=== PATIENT | male | born 1980 | race Caucasian/White ===

== ENCOUNTER 2019-06-21 05:14 | Observation (INO) ==
[2019-06-21] MEDS ORDERED: Ondansetron 4 MG/2 ML VIAL IVP ONE (05:35)
[2019-06-21] MEDS ORDERED: *HR* FentaNYL (PF) 100 MCG/2 ML VIAL IVP ONE (05:35)
--- NOTE | 2019-06-21 05:38 | Emergency Department Note ---
Disposition Clinical Impression: Cholecystitis Disposition: Still a Patient Condition: Fair Time of Disposition: 21:40 General Adult HPI - General Stated complaint: Abd. Pain Time Seen by Provider: 06/21/19 05:19 - Related Data Home Medications Medication Instructions Recorded Confirmed No Known Home Drugs 06/21/19 06/21/19 Allergies Allergy/AdvReac Type Severity Reaction Status Date / Time No Known Allergies Allergy Verified 04/20/19 15:45 Past Medical History - Past Medical History Medical history: Reports: non-contributory - Social History Smoking Status: Current every day smoker Smokeless Tobacco Status: No Alcohol use: Reports: occasionally Drug use: Reports: IV Drug Use Course Vital Signs Temperature 98.1 F 06/21/19 05:36 Pulse Rate 71 06/21/19 05:36 Respiratory Rate 16 06/21/19 05:36 Blood Pressure 159/106 06/21/19 05:36 O2 Sat by Pulse Oximetry 100 06/21/19 05:36 Temperature 98.5 F 06/21/19 20:21 Pulse Rate 79 06/21/19 20:21 Respiratory Rate 16 06/21/19 20:21 Blood Pressure 131/74 06/21/19 20:21 O2 Sat by Pulse Oximetry 96 06/21/19 20:21 Oxygen Delivery Oxygen Delivery Room Air Medical Decision Making - Lab Data Result diagrams: 06/21/19 05:55 06/21/19 05:55 Lab Results 06/21/19 06/21/19 06/21/19 Range/Units 05:55 05:55 05:55 WBC 12.4 H (4.3-11.1) K/mcL RBC 5.19 (4.19-5.50) M/mcL Hgb 15.1 (12.9-16.9) g/dL Hct 45.0 (37.5-50.1) % MCV 86.7 (83.0-100.0) fL MCH 29.1 (28.0-33.3) pg MCHC 33.6 (31.6-35.5) g/dL RDW 13.1 (11.5-14.5) % Plt Count 242 (140-400) K/mcL MPV 9.4 (9.4-12.4) fL Immature Gran % 0.3 (0-4) % Seg Neutrophils % 70.4 % Lymphocytes % 15.5 % Monocytes % 10.5 % Eosinophils % 2.7 % Basophils % 0.6 % Neutrophils # 8.7 (1.6-8.9) K/mcL Lymphocytes # 1.9 (0.6-4.6) K/mcL Monocytes # 1.3 (0.0-1.3) K/mcL Eosinophils # 0.3 (0.0-0.6) K/mcL Basophils # 0.1 (0.0-0.2) K/mcL PT 11.5 (9.4-12.1) Seconds INR 1.0 Sodium 142 (136-145) mEq/L Potassium 3.5 (3.5-5.1) mEq/L Chloride 101 (98-107) mEq/L Carbon Dioxide 29 (23-29) mEq/L BUN 9 (6-20) mg/dL Creatinine 1.07 (0.70-1.30) mg/dL Est GFR ( Amer) > 60 (> 60) Est GFR (Non-Af Amer) > 60 (> 60) BUN/Creatinine Ratio 8 (6-26) Glucose 115 H (70-105) mg/dL Calculated Osmolality 294 (280-300) Calcium 9.6 (8.6-10.3) mg/dL Total Bilirubin 0.4 (0.3-1.0) mg/dL AST 22 (13-39) Units/L ALT 42 (7-52) Units/L Alkaline Phosphatase 94 (34-104) Units/L Serum Total Protein 7.5 (6.4-8.9) g/dL Albumin 4.0 (3.5-5.7) g/dL Globulin 3.5 (2.4-3.5) g/dL Albumin/Globulin Ratio 1.1 (1.1-2.2) Lipase 23 (11-82) Units/L Urine Color (Yellow) Urine Clarity (Clear) Urine pH (5.0-8.0) pH Units Ur Specific [place] (1.010-1.025) Urine Protein (Neg-Trace) mg/dL Urine Glucose (UA) (Normal) mg/dL Urine Ketones (Negative) mg/dL Urine Blood (Negative) Urine Nitrite (Negative) Urine Bilirubin (Negative) Urine Urobilinogen (Normal) mg/dL Ur Leukocyte Esterase (Negative) Urine Microscopic RBC (0-3) per hpf Urine Microscopic WBC (0-3) per hpf Ur Squamous Epith Cells (None-Few) per lpf Urine Bacteria (None-Few) per hpf Hyaline Casts (None-Few) per lpf 06/21/19 Range/Units 07:55 WBC (4.3-11.1) K/mcL RBC (4.19-5.50) M/mcL Hgb (12.9-16.9) g/dL Hct (37.5-50.1) % MCV (83.0-100.0) fL MCH (28.0-33.3) pg MCHC (31.6-35.5) g/dL RDW (11.5-14.5) % Plt Count (140-400) K/mcL MPV (9.4-12.4) fL Immature Gran % (0-4) % Seg Neutrophils % % Lymphocytes % % Monocytes % % Eosinophils % % Basophils % % Neutrophils # (1.6-8.9) K/mcL Lymphocytes # (0.6-4.6) K/mcL Monocytes # (0.0-1.3) K/mcL Eosinophils # (0.0-0.6) K/mcL Basophils # (0.0-0.2) K/mcL PT (9.4-12.1) Seconds INR Sodium (136-145) mEq/L Potassium (3.5-5.1) mEq/L Chloride (98-107) mEq/L Carbon Dioxide (23-29) mEq/L BUN (6-20) mg/dL Creatinine (0.70-1.30) mg/dL Est GFR ( Amer) (> 60) Est GFR (Non-Af Amer) (> 60) BUN/Creatinine Ratio (6-26) Glucose (70-105) mg/dL Calculated Osmolality (280-300) Calcium (8.6-10.3) mg/dL Total Bilirubin (0.3-1.0) mg/dL AST (13-39) Units/L ALT (7-52) Units/L Alkaline Phosphatase (34-104) Units/L Serum Total Protein (6.4-8.9) g/dL Albumin (3.5-5.7) g/dL Globulin (2.4-3.5) g/dL Albumin/Globulin Ratio (1.1-2.2) Lipase (11-82) Units/L Urine Color Yellow (Yellow) Urine Clarity Cloudy A (Clear) Urine pH 7.5 (5.0-8.0) pH Units Ur Specific [place] 1.022 (1.010-1.025) Urine Protein Negative (Neg-Trace) mg/dL Urine Glucose (UA) Normal (Normal) mg/dL Urine Ketones Negative (Negative) mg/dL Urine Blood Negative (Negative) Urine Nitrite Negative (Negative) Urine Bilirubin Negative (Negative) Urine Urobilinogen Normal (Normal) mg/dL Ur Leukocyte Esterase Negative (Negative) Urine Microscopic RBC 0-3 (0-3) per hpf Urine Microscopic WBC 0-3 (0-3) per hpf Ur Squamous Epith Cells None Seen (None-Few) per lpf Urine Bacteria None Seen (None-Few) per hpf Hyaline Casts None Seen (None-Few) per lpf Attestation Statement - Attestation Attestation: I reviewed the residents documentation and agree with the residents assessment and plan of care. I have personally had face to face time with the patient. (Brief History, Brief Exam, and MDM) I personally supervised and was present for the burks/critical portions of the following procedures completed by the resident: (add procedures performed here). [id number] time provided Patient presents with epigastric pain starting yesterday. He appears mildly uncomfortable on exam. He states he has never had pain like this in the past I attest to supervising the resident physician's interpretation the ECG I attest to supervising the resident physician's Limited right upper quadrant ultrasound 06:33: Care endorsed to Dr. Baptiste 07:00 pending GB US and re-evaluation
--- NOTE | 2019-06-21 05:57 | Emergency Department Note ---
Disposition Clinical Impression: Cholecystitis Disposition: Still a Patient Condition: Fair Instructions: Abdominal Pain (ED) Referrals: NONE,PCP [Primary Care Provider] - Time of Disposition: 06:58 General Adult HPI - General Stated complaint: Abd. Pain Time Seen by Provider: 06/21/19 05:19 Source: patient Mode of arrival: ambulatory Limitations: no limitations Nursing Notes Reviewed: Yes Vital Signs Reviewed: Yes - History of Present Illness HPI Narrative: Patient is a 38-year-old male, previously healthy who is presenting with right upper quadrant abdominal pain. States that the pain started yesterday has been progressively getting worse. Pain is constant, does not radiate anywhere. Pain worsens when he eats. Reports decreased appetite and fluid intake. Cannot find a comfortable position. Nothing appears to decrease the pain. Describes the pain as sharp and stabbing. Patient has a gallbladder, has had appendix removed in the past. Endorses nausea, vomiting. Denies fevers, chills. Denies any dysuria or constipation/diarrhea. Pain Scale: 10 - Related Data Allergies Allergy/AdvReac Type Severity Reaction Status Date / Time No Known Allergies Allergy Verified 04/20/19 15:45 All systems ED: reviewed and negative except as stated. Review of Systems: As Per HPI Constitutional: Denies: fever, chills, weakness Eyes: Denies: eye pain, eye discharge, vision change ENT ED: Denies: ear pain, throat pain, dental pain Cardiovascular: Denies: chest pain, palpitations, dyspnea on exertion Respiratory: Denies: cough, dyspnea, wheezes Gastrointestinal: Reports: abdominal pain, nausea, vomiting. Denies: diarrhea, constipation Genitourinary: Denies: urgency, dysuria, frequency Musculoskeletal: Denies: back pain, neck pain, joint swelling Integumentary: Denies: rash, abrasion, lesions Neurological: Denies: headache, weakness, numbness Psychiatric: Denies: anxiety, depression, suicidal thoughts Endocrine: Denies: fatigue, heat or cold intolerance, polydipsia Past Medical History - Past Medical History Attestation: Yes The following information was validated with the patient. Source: patient Medical history: Reports: non-contributory - Social History Smoking Status: Current every day smoker Smokeless Tobacco Status: No Alcohol use: Reports: occasionally Drug use: Reports: IV Drug Use Physical Exam GEN: Uncomfortable, moderate distress, conversant. He is diaphoretic. HEENT: NC, AT. MMM. EOMI, clear conjunctiva, oropharynx clear. NECK: Supple without lymphadenopathy. No stiffness or restricted ROM. HEART: Normal rate and regular rhythm, normal S1/S1, no m/r/g LUNGS: CTAB, moving air well. No crackles or wheezes are heard. ABDOMEN: Tender to palpation in the right upper quadrant, guarding, rigidity, no rebound with good bowel sounds heard. Positive Ramos sign BACK: No CVAT, no obvious deformity. EXTREMITIES: Without cyanosis, clubbing or edema. NEUROLOGICAL: Grossly nonfocal. Alert and oriented, moving all 4 extremities. CN not formally tested but appear grossly intact. Observed to ambulate with normal gait. Skin: Warm and dry without any rash. - General Limitations: no limitations General appearance: alert Course Course Narrative: Patient was seen and examined. Vital signs remarkable for systolic blood pressure 150s. Exam remarkable for extremely tender right upper quadrant. Bedside ultrasound of the gallbladder was performed showing no gallbladder wall thickening or pericholecystic fluid, possible sludge. Labs and CT scan of the abdomen and pelvis obtained. Fentanyl and Zofran given for symptom control. - Reevaluation(s) Reevaluation #1: Surgery was contacted and made aware of the patient. Communicated with Dr. Kumar, will see in the ED and evaluate for surgical intervention. Time: 06:56 Vital Signs Temperature 98.1 F 06/21/19 05:36 Pulse Rate 71 06/21/19 05:36 Respiratory Rate 16 06/21/19 05:36 Blood Pressure 159/106 06/21/19 05:36 O2 Sat by Pulse Oximetry 100 06/21/19 05:36 Temperature 98.1 F 06/21/19 05:36 Pulse Rate 71 06/21/19 05:36 Respiratory Rate 16 06/21/19 05:36 Blood Pressure 159/106 06/21/19 05:36 O2 Sat by Pulse Oximetry 100 06/21/19 05:36 Oxygen Delivery Oxygen Delivery Room Air Medical Decision Making - MDM Narrative Medical decision making narrative: Patient is a 38-year-old male with no previous medical history who is presenting with right upper quadrant pain. CT scan indicated likely cholecystitis with a partially calcified gallstone in the gallbladder neck with some pericholecystic fluid. Patient has a positive Ramos sign with guarding and rigidity. Differential includes cholecystitis, cholelithiasis. Patient has a white count of 12 with normal liver function tests. Patient's pain treated with fentanyl and Dilaudid. We will further evaluate with a formal gallbladder ultrasound. Surgery was consulted and will see the patient in the emergency department to evaluate for acute surgical intervention. At this time patient was signed out to oncoming team for further care. Patient was started on Rocephin, PT INR obtained. Patient is hemodynamically stable at sign out. - Medical Records Medical records reviewed: Yes I reviewed the patient's medical records. - Lab Data Lab results reviewed: Yes I reviewed the patient's lab results. Result diagrams: 06/21/19 05:55 06/21/19 05:55 Lab Results 06/21/19 06/21/19 Range/Units 05:55 05:55 WBC 12.4 H (4.3-11.1) K/mcL RBC 5.19 (4.19-5.50) M/mcL Hgb 15.1 (12.9-16.9) g/dL Hct 45.0 (37.5-50.1) % MCV 86.7 (83.0-100.0) fL MCH 29.1 (28.0-33.3) pg MCHC 33.6 (31.6-35.5) g/dL RDW 13.1 (11.5-14.5) % Plt Count 242 (140-400) K/mcL MPV 9.4 (9.4-12.4) fL Immature Gran % 0.3 (0-4) % Seg Neutrophils % 70.4 % Lymphocytes % 15.5 % Monocytes % 10.5 % Eosinophils % 2.7 % Basophils % 0.6 % Neutrophils # 8.7 (1.6-8.9) K/mcL Lymphocytes # 1.9 (0.6-4.6) K/mcL Monocytes # 1.3 (0.0-1.3) K/mcL Eosinophils # 0.3 (0.0-0.6) K/mcL Basophils # 0.1 (0.0-0.2) K/mcL Sodium 142 (136-145) mEq/L Potassium 3.5 (3.5-5.1) mEq/L Chloride 101 (98-107) mEq/L Carbon Dioxide 29 (23-29) mEq/L BUN 9 (6-20) mg/dL Creatinine 1.07 (0.70-1.30) mg/dL Est GFR ( Amer) > 60 (> 60) Est GFR (Non-Af Amer) > 60 (> 60) BUN/Creatinine Ratio 8 (6-26) Glucose 115 H (70-105) mg/dL Calculated Osmolality 294 (280-300) Calcium 9.6 (8.6-10.3) mg/dL Total Bilirubin 0.4 (0.3-1.0) mg/dL AST 22 (13-39) Units/L ALT 42 (7-52) Units/L Alkaline Phosphatase 94 (34-104) Units/L Serum Total Protein 7.5 (6.4-8.9) g/dL Albumin 4.0 (3.5-5.7) g/dL Globulin 3.5 (2.4-3.5) g/dL Albumin/Globulin Ratio 1.1 (1.1-2.2) Lipase 23 (11-82) Units/L - Radiology Data Radiology results reviewed: Yes I reviewed the patient's radiology results. Abdomen/Pelvis CT 06/21/19 05:36 IMPRESSION: Partially calcified gallstone in the gallbladder neck with gallbladder distension, mild hyperemia, and question trace pericholecystic fluid suspicious of acute cholecystitis. D/ / Cyril Goyal / Cyril Goyal Interpreting Provider: Cyril Goyal - EKG Data EKG #1 EKG attestation: Yes I reviewed and interpreted this EKG. EKG results narrative: EKG was obtained at 6:02 AM. My interpretation of the EKG shows normal sinus rhythm, normal axis, regular intervals, no ST changes or T-wave inversions. No hypertrophy. No evidence of Brugada, WPW, HOCM. EKG was compared to prior from 04/20/2019.
[2019-06-21 06:13] LABS: Basophils # 0.1 K/mcL (0.0-0.2); Basophils % 0.6 %; Eosinophils # 0.3 K/mcL (0.0-0.6); Eosinophils % 2.7 %; Hemoglobin 15.1 g/dL (12.9-16.9); Immature Granulocytes % 0.3 % (0-4); Lymphocytes # 1.9 K/mcL (0.6-4.6); Lymphocytes % 15.5 %; Mean Corpuscular HGB Conc 33.6 g/dL (31.6-35.5); Mean Corpuscular Hemoglobin 29.1 pg (28.0-33.3); Mean Corpuscular Volume 86.7 fL (83.0-100.0); Mean Platelet Volume 9.4 fL (9.4-12.4); Monocytes # 1.3 K/mcL (0.0-1.3); Monocytes % 10.5 %; Neutrophils # 8.7 K/mcL (1.6-8.9); Platelet Count 242 K/mcL (140-400); Red Blood Count 5.19 M/mcL (4.19-5.50); Red Cell Distribution Width 13.1 % (11.5-14.5); Segmented Neutrophils % 70.4 %; White Blood Count 12.4 K/mcL (4.3-11.1)
[2019-06-21 06:30] LABS: Alanine Aminotransferase 42 Units/L (7-52); Albumin/Globulin Ratio 1.1 (1.1-2.2); Alkaline Phosphatase 94 Units/L (34-104); Aspartate Amino Transferase 22 Units/L (13-39); BUN/Creatinine Ratio 8 (6-26); Bilirubin,Total 0.4 mg/dL (0.3-1.0); Blood Urea Nitrogen 9 mg/dL (6-20); Calcium 9.6 mg/dL (8.6-10.3); Carbon Dioxide 29 mEq/L (23-29); Chloride 101 mEq/L (98-107); Globulin 3.5 g/dL (2.4-3.5); Glucose 115 mg/dL (70-105); Lipase 23 Units/L (11-82); Osmolality,Calculated 294 (280-300); Potassium 3.5 mEq/L (3.5-5.1); Sodium 142 mEq/L (136-145); Total Protein 7.5 g/dL (6.4-8.9); eGFR For African Americans > 60 (> 60); eGFR For Non-African Americans > 60 (> 60)
[2019-06-21] MEDS ORDERED: *HR* HYDROmorphone (PF) 1 MG/ML SYRINGE IVP ONE (06:35)
[2019-06-21] MEDS ORDERED: cefTRIAXone 1,000 MG in Water for inj. (sterile) 10 ML IVP ONE (06:43)
[2019-06-21 07:22] LABS: Prothrombin Time 11.5 Seconds (9.4-12.1)
[2019-06-21] MEDS ORDERED: *HR* HYDROmorphone 2 MG/ML SYRINGE IVP ONE (08:01)
[2019-06-21 08:18] LABS: Bilirubin,Urine Negative (Negative); Blood,Urine Negative (Negative); Clarity,Urine Cloudy (Clear); Color,Urine Yellow (Yellow); Glucose,Urine (UA) Normal (Normal); Ketones,Urine Negative (Negative); Leukocyte Esterase,Urine Negative (Negative); Nitrite,Urine Negative (Negative); PH,Urine 7.5 pH Units (5.0-8.0); Protein,Urine Negative (Neg-Trace); Specific Gravity,Urine 1.022 (1.010-1.025); Urobilinogen,Urine Normal (Normal)
[2019-06-21 08:20] LABS: Bacteria,Urine None Seen per hpf (None-Few); Hyaline Casts,Urine None Seen per lpf (None-Few); RBC,Urine 0-3 per hpf (0-3); Squamous Epithelial Cell,Urine None Seen per lpf (None-Few); WBC,Urine 0-3 per hpf (0-3)
--- NOTE | 2019-06-21 08:52 | Acute Care Surgery H&P ---
Date of Encounter: 06/21/19 Time of Encounter: 08:30 Assessment and Plan (1) Cholelithiasis and acute cholecystitis without obstruction Current Visit: Yes Status: Acute The assessment and plan as outlined above was discussed with the patient and/or family members who expressed understanding and agreement. All questions were answered. I discussed the risks and benefits of surgery with the patient understands and wishes to proceed. We will schedule laparoscopic cholecystectomy, cholangiogram later today. Patient does understand that there is a risk of open conversion History of Present Illness Chief complaint: Right upper quadrant abdominal pain HPI: Mr. Bryan is a 38 year old male With a three-day history of right upper quadrant abdominal pain. He has not previously had abdominal pain syndrome. He has had 3 days of nausea and vomiting. He sought evaluation in the emergency department. CAT scan of the abdomen demonstrated acute cholecystitis with cholelithiasis. The patient does have leukocytosis. He continues to have severe right upper quadrant abdominal pain. I personally reviewed the CAT scan of the abdomen. Gallbladder wall is thickened. There is pericholecystic fluid. The patient does have cholelithiasis. I discussed the risks and benefits of surgery with the patient understands and wished to proceed. We did discuss the risk of bleeding, infection, postoperative bile leak, open conversion, and common bile duct injury. Past Med Surg Social Fam HX - Past Medical History Medical history: non-contributory - Social History Smoking Status: Current every day smoker Smokeless Tobacco Status: No Alcohol use: occasionally Drug use: IV Drug Use Medications and Allergies No Known Home Drugs 06/21/19 [History] Allergy/AdvReac Type Severity Reaction Status Date / Time No Known Allergies Allergy Verified 04/20/19 15:45 Review of Systems All systems PM: The remainder of the systems were reviewed and are negative General Surgery Exam Initial Vital Signs Temp Pulse Resp BP Pulse Ox 98.1 F 71 16 159/106 100 06/21/19 05:36 06/21/19 05:36 06/21/19 05:36 06/21/19 05:36 06/21/19 05:36 - General physical appearance well developed, well nourished, moderate distress, moderate pain - Respiratory normal expansion, normal respiratory effort, clear to percussion, clear to auscultation - Cardiovascular Cardiovascular exam: Present: RRR, no murmurs/rubs/gallops - Abdomen Abdomen general surgery: Present: bowel sounds present Abdominal Tenderness: Present: RUQ (Involuntary guarding) - Integumentary Integumentary general surgery: Present: warm and dry, no abnormal pigmentation, other (No evidence of jaundice) - Neurologic Present: CN 2-12 grossly intact, normal coordination, normal sensation - Psychiatric Psychiatric general surgery: Present: appropriate, oriented to person, oriented to place, oriented to time, speech is normal, memory intact Results - Labs 06/21/19 05:55 06/21/19 05:55 Abnormal lab results WBC 12.4 K/mcL (4.3-11.1) H 06/21/19 05:55 Glucose 115 mg/dL (70-105) H 06/21/19 05:55 Urine Clarity Cloudy (Clear) A 06/21/19 07:55 Diabetes panel 06/21/19 Range/Units 05:55 Sodium 142 (136-145) mEq/L Potassium 3.5 (3.5-5.1) mEq/L Chloride 101 (98-107) mEq/L Carbon Dioxide 29 (23-29) mEq/L BUN 9 (6-20) mg/dL Creatinine 1.07 (0.70-1.30) mg/dL Glucose 115 H (70-105) mg/dL Calcium 9.6 (8.6-10.3) mg/dL AST 22 (13-39) Units/L ALT 42 (7-52) Units/L Alkaline Phosphatase 94 (34-104) Units/L Albumin 4.0 (3.5-5.7) g/dL Calcium panel 06/21/19 Range/Units 05:55 Calcium 9.6 (8.6-10.3) mg/dL Albumin 4.0 (3.5-5.7) g/dL Pituitary panel 06/21/19 Range/Units 05:55 Sodium 142 (136-145) mEq/L Potassium 3.5 (3.5-5.1) mEq/L Chloride 101 (98-107) mEq/L Carbon Dioxide 29 (23-29) mEq/L BUN 9 (6-20) mg/dL Creatinine 1.07 (0.70-1.30) mg/dL Glucose 115 H (70-105) mg/dL Calcium 9.6 (8.6-10.3) mg/dL Adrenal panel 06/21/19 Range/Units 05:55 Sodium 142 (136-145) mEq/L Potassium 3.5 (3.5-5.1) mEq/L Chloride 101 (98-107) mEq/L Carbon Dioxide 29 (23-29) mEq/L BUN 9 (6-20) mg/dL Creatinine 1.07 (0.70-1.30) mg/dL Glucose 115 H (70-105) mg/dL Calcium 9.6 (8.6-10.3) mg/dL Total Bilirubin 0.4 (0.3-1.0) mg/dL AST 22 (13-39) Units/L ALT 42 (7-52) Units/L Alkaline Phosphatase 94 (34-104) Units/L Albumin 4.0 (3.5-5.7) g/dL All other labs normal. - Imaging CT scan - abdomen: image reviewed (CAT scan of the abdomen was personally reviewed. He does have gallbladder wall thickening pericolic cystic fluid and cholelithiasis. We will plan on laparoscopic cholecystectomy later today)
--- NOTE | 2019-06-21 11:17 | Anesthesia Evaluation PreOp ---
Date of Encounter: 06/21/19 Time of Encounter: 11:15 - Past History Planned Operation: LAP CHOLECYSTECYOMY Cardiac History: HTN (UNDIAGNOSED) Pulmonary History: Smoker Other Medical History: Other (IV HEROIN USE, QUIT "COLD TUR[place]" 2 MTH AGO) Anesthesia History: No Prior Anesthetic Complications, Past Anesthesia Alcohol Use: occasionally Drug use: IV Drug Use Medications and Allergies No Known Home Drugs 06/21/19 [History] Allergy/AdvReac Type Severity Reaction Status Date / Time No Known Allergies Allergy Verified 04/20/19 15:45 - Meds/Allergy Pre-op Review Medications Reviewed: Yes Allergies Reviewed: Yes Beta Blockers on Current Med List: No Anesthesia Results - Labs 06/21/19 05:55 06/21/19 05:55 Laboratory Tests 06/21/19 06/21/19 05:55 05:55 PT 11.5 INR 1.0 Est GFR (Non-Af Amer) > 60 Total Bilirubin 0.4 AST 22 ALT 42 Alkaline Phosphatase 94 Serum Total Protein 7.5 Albumin 4.0 Anesthesia Exam Vital Signs/O2 Sat/Glucose, Most Recent Temp Pulse Resp BP Pulse Ox 98.1 F 79 15 143/94 100 06/21/19 05:36 06/21/19 09:30 06/21/19 10:38 06/21/19 10:38 06/21/19 09:30 Weight: 82 KG - BMI 27 NPO (# of Hours): >MN - HEENT Mallampati: II Teeth: Missing, Poor dentition - Cardiac Rhythm: Regular - Pulmonary Breath Sounds: bilateral Clear Anesthesia Assess/Plan ASA Score: 3 Anesthetic Plan: General Monitoring Plan: Standard Monitors Recovery Plan: PACU Anes Supervising Prov Stmt: METOPROLOL 5 MG IV X1 DOSE ORDERED FOR BP
[2019-06-21] MEDS ORDERED: Ondansetron 4 MG/2 ML VIAL IVP PRN ×2 (11:29→20:21)
[2019-06-21] MEDS ORDERED: 0.9 % Sodium Chloride 1,000 ML IVC SCH (11:29)
[2019-06-21] MEDS ORDERED: *HR* Metoprolol 5 MG/5 ML VIAL IVP ONE (11:50)
[2019-06-21] MEDS ORDERED: cefOXitin 1,000 MG in Water for inj. (sterile) 10 ML IVP SCH (16:00)
--- NOTE | 2019-06-21 16:47 | Electrocardiograph Report ---
[address] [address] Test Date: 2019-06-21 Pat Name: Jerrell Bryan Department: [id number] Room: 3A25 Gender: M [place] [employer]: : 1980 Requested By: Jose Espana Order Number: [id number] Reading MD: Leopoldo Barrera Measurements Intervals [place] Rate: 67 P: 72 IA: 129 QRS: 62 QRSD: 102 T: 46 QT: 410 QTc: 433 Interpretive Statements Sinus rhythm Electronically Signed On 06-21-2019 16:45:39 EDT by Leopoldo Barrera
[2019-06-21] MEDS ORDERED: Morphine Sulfate 2 MG/ML SYRINGE IVP ONE (17:37)
[2019-06-21] MEDS ORDERED: CefOXitin 1,000 MG VIAL ONE (17:51)
[2019-06-21] MEDS ORDERED: *HR* Morphine Sulfate/PF 10 MG/10 ML AMPUL ONE (17:53)
[2019-06-21] MEDS ORDERED: *HR* Succinylcholine 200 MG/10 ML VIAL IVP ONE (17:56)
[2019-06-21] MEDS ORDERED: *HR* Rocuronium Bromide 50 MG/5 ML VIAL ONE (17:56)
[2019-06-21] MEDS ORDERED: Lidocaine -MPF 2% 2 ML VIAL ONE (17:56)
[2019-06-21] MEDS ORDERED: *HR* FentaNYL (PF) 100 MCG/2 ML VIAL ONE (17:57)
[2019-06-21] MEDS ORDERED: *HR* HYDROMORPHONE 2 MG/ML VIAL ONE (17:57)
[2019-06-21] MEDS ORDERED: *HR* Midazolam HCl 2 MG/2 ML VIAL ONE (17:57)
[2019-06-21] MEDS ORDERED: *HR* Propofol 200 MG/20 ML VIAL IVP ONE (17:57)
[2019-06-21] MEDS ORDERED: CefOXitin 2,000 MG VIAL ONE (18:11)
[2019-06-21] MEDS ORDERED: Isovue-300 50 ML VIAL ONE (18:12)
[2019-06-21] MEDS ORDERED: Dexamethasone 4 MG/ML VIAL ONE (18:21)
[2019-06-21] MEDS ORDERED: Ondansetron 4 MG/2 ML VIAL ONE (18:21)
[2019-06-21] MEDS ORDERED: *HR* PHENYLEPHRINE 1,000 MCG/10 ML SYRINGE IVP ONE (18:28)
[2019-06-21] MEDS ORDERED: Neostigmine Methylsulfate 3 MG/3 ML SYRINGE ONE (18:51)
--- NOTE | 2019-06-21 19:18 | Operative Note ---
Date of procedure: 06/21/19 Pre-op diagnosis: Cholelithiasis and acute cholecystitis Post-op diagnosis: other (Gallbladder necrosis cholelithiasis and acute cholecystitis) Procedure: laparoscopic cholecystectomy, cholangiogram Anesthesia: ABDULLAHI Surgeon: Mj Hart Was there an certified pathology assistant present: Yes Credit Collections Analyst: Ann Marie Dailey Estimated blood loss (cc): 15 Specimen: Gallbladder and contents Condition: stable Disposition: PACU Procedure in Detail: Laparoscopic cholecystectomy and intraoperative cholangiogram Operative procedure: after informed consent and appropriate patient identification, the patient was taken to the major operating suite and placed supine position and given adequate general endotracheal anesthesia. The abdomen was prepped and draped in sterile fashion utilizing ChloraPrep standard draping techniques. Timeout was taken and the patient was identified. I made a vertical midline incision below the umbilicus and dissected down to level of fascia. I placed 2 traction stitches of 0 vicryl in the midline fascia and the abdominal cavity was entered visually. A Fernandez trocar was placed in the abdomen and the abdomen was insufflated to 15 mmHg pressure CO2. The gallbladder was visualized. I placemed an 11 port in the subxiphoid area and two 5 mm ports in the subcostal area. The fundus the gallbladder demonstrated discrete areas of gallbladder necrosis with pericholecystic fluid. The gallbladder was obstructed. The gallbladder was decompressed with a decompression needle and suction. The gallbladder was grasped and elevated. A variety of blunt and sharp dissection techniques were used to isolate the cystic duct and cystic artery. The cystic artery was controlled with 2 surgical clips proximally and one distally and it was divided. I placed a surgical clip on the neck the gallbladder and obtained an intraoperative cholangiogram using 10 mL of Isovue. Intraoperative cholangiogram was normal. The cholangiocatheter was removed and the cystic duct was controlled with 2 surgical clips proximally and was divided. The gallbladder was removed from the gallbladder fossae using electrocautery. The gallbladder was removed from the abdomen through the #11 port site using a specimen bag. I replaced the #11 port and irrigated with copious amounts of antibiotic containing solution. There was no evidence of bleeding or bile leak. All trochars were removed. Fascia was closed with 0 Vicryl and the skin with 2-0 and 4-0 Vicryl. He tolerated the procedure well and was transferred to recovery in stable condition
[2019-06-21] MEDS ORDERED: *HR* Promethazine 25 MG/ML VIAL IVP PRN (19:40)
[2019-06-21] MEDS ORDERED: Ondansetron 4 MG/2 ML VIAL IM PRN (19:40)
[2019-06-21] MEDS: *HR* HYDROmorphone (PF) 1 MG/ML SYRINGE IVP PRN ×4 (19:46→20:01)
--- NOTE | 2019-06-21 20:04 | Anesthesia Evaluation Post Op ---
Date of Encounter: 06/21/19 Time of Encounter: 20:03 - Vital Signs Vital Signs: Vital Signs/O2 Sat, Most Current Temp Pulse Resp BP Pulse Ox 99.2 F 94 16 126/84 95 06/21/19 20:00 06/21/19 20:00 06/21/19 20:00 06/21/19 20:00 06/21/19 20:00 - Lungs Lungs: Clear Ascult./Percussion - Airway Airway: Non-obstructed - Cardiovascular Regular Rate - Mental Status Mental Status: Alert & Oriented, Answers Appropriately - Pain Pain Scale: 0 Pain Scale used: Numeric (1 - 10) - Nausea Vomiting Nausea Vomiting: Not Present - Hydration Hydration: Ice chips, Has not voided - Discharge PostOp Status: Transfer Patient to floor
[2019-06-21] MEDS ORDERED: *HR* OxyCODONE/APAP 5/325 TABLET PO PRN (20:21)
[2019-06-21] MEDS: 0.9 % Sodium Chloride 1,000 ML IVC SCH (21:56)
[2019-06-22] MEDS: cefOXitin 2,000 MG in Water for inj. (sterile) 20 ML IVP SCH ×2 (00:51→07:30)
[2019-06-22] MEDS: 0.9 % Sodium Chloride 1,000 ML IVC SCH (06:32)
[2019-06-22 07:11] LABS: Basophils % 0.3 %; Hematocrit 38.3 % (37.5-50.1); Immature Granulocytes % 0.3 % (0-4); Lymphocytes % 9.4 %; Mean Corpuscular HGB Conc 33.4 g/dL (31.6-35.5); Mean Corpuscular Hemoglobin 29.6 pg (28.0-33.3); Mean Corpuscular Volume 88.7 fL (83.0-100.0); Mean Platelet Volume 9.6 fL (9.4-12.4); Monocytes # 1.3 K/mcL (0.0-1.3); Neutrophils # 8.6 K/mcL (1.6-8.9); Platelet Count 181 K/mcL (140-400); Red Blood Count 4.32 M/mcL (4.19-5.50); Red Cell Distribution Width 13.4 % (11.5-14.5)
[2019-06-22 07:27] LABS: BUN/Creatinine Ratio 11 (6-26); Blood Urea Nitrogen 11 mg/dL (6-20); Calcium 9.1 mg/dL (8.6-10.3); Carbon Dioxide 28 mEq/L (23-29); Chloride 103 mEq/L (98-107); Glucose 144 mg/dL (70-105); Osmolality,Calculated 294 (280-300); Potassium 4.2 mEq/L (3.5-5.1); Sodium 141 mEq/L (136-145); eGFR For African Americans > 60 (> 60); eGFR For Non-African Americans > 60 (> 60)
[2019-06-22 07:33] LABS: Hemoglobin 12.8 g/dL (12.9-16.9)
[2019-06-22 08:39] VITALS: BP 139/85
--- NOTE | 2019-06-22 08:56 | Discharge Summary ---
<Diana Gurrola L - Last Filed: 06/22/19 08:53> Orders not resulted at time of discharge: Pending orders 06/21/19 18:33 Surgical Pathology [PTH] Routine Date of Encounter: 06/22/19 Time of Encounter: 07:30 - Discharge Diagnosis (1) Cholecystitis Priority: Primary Status: Resolved General Surgery Exam Initial Vital Signs Temp Pulse Resp BP Pulse Ox 98.1 F 71 16 159/106 100 06/21/19 05:36 06/21/19 05:36 06/21/19 05:36 06/21/19 05:36 06/21/19 05:36 Vital Signs Temp Pulse Resp BP Pulse Ox 06/22/19 08:38 98.3 F 70 18 139/85 97 06/22/19 03:04 98.3 F 88 17 143/95 95 06/21/19 23:45 98.6 F 75 15 123/80 96 06/21/19 22:45 98.6 F 79 15 133/82 96 06/21/19 21:44 98.6 F 78 15 121/79 96 06/21/19 21:20 98.5 F 74 16 123/96 96 06/21/19 20:50 98.5 F 79 16 134/90 94 06/21/19 20:21 98.5 F 79 16 131/74 96 06/21/19 20:10 99.2 F 74 12 114/76 95 06/21/19 20:00 99.2 F 94 16 126/84 95 06/21/19 19:50 85 16 119/78 96 06/21/19 19:40 76 16 120/86 97 06/21/19 19:30 98.3 F 71 16 130/87 98 06/21/19 15:44 99.3 F 81 16 148/93 97 06/21/19 13:16 98.7 F 73 18 154/82 99 06/21/19 12:16 98.9 F 70 19 170/89 99 06/21/19 10:38 15 143/94 06/21/19 09:30 79 18 133/116 100 06/21/19 09:00 83 20 148/94 99 Intake and Output 06/21/19 06/22/19 06/22/19 23:59 07:59 15:59 Intake Total 1000 / 1010 1020 / 1020 Output Total 15 / 15 Balance 985 / 995 1020 / 1020 Intake: IV Fluids 1000 / 1010 1020 / 1020 0.9 % Sodium Chloride 1,000 ML 1000 / 1000 1000 / 1000 @ 125 mls/hr IVC .Q8H [facility] Rx#: [id number] Mefoxin 2,000 MG In Water for inj. (sterile) 20 ML @ 300 mls/ hr IVP Q8HR [facility] Rx#:[id number] Output: Estimated Blood Loss Other: # Voids 1 1 Weight 81.8 kg Patient Weight 06/22/19 23:59 Weight 81.8 kg VITAL SIGNS: Reviewed. See [facility] GENERAL: In no apparent distress. HEENT: Normocephalic, atraumatic, poor dentition, pupils are equal and reactive, extraocular motions intact, oropharynx is pink and moist, there is no neck adenopathy or JVD noted. CHEST/RESPIRATORY: The thorax is free from signs of trauma. Lung sounds: clear to auscultation, normal respiratory effort CARDIAC: Regular rate and rhythm. Normal S1 and S2, without murmurs, gallops, or rubs. VASCULAR: No Edema. 2+ peripheral pulses. ABDOMEN: soft, expected postoperative tenderness, active bowel sounds INCISION: Surgical incision is clean, dry, and intact. There are no signs of cellulitis or infection noted. MUSCULOSKELETAL: Good range of motion of all major joints. Extremities without clubbing, cyanosis or edema. NEUROLOGIC EXAM: Alert and oriented x 3. Speech normal. Follows commands. PSYCHIATRIC: Mood normal. SKIN: No rash or lesions. - Hospital Course Hospital course: Mr. Bryan is a 38 year old male who presented on 06/21/2018 with findings consistent with acute cholecystitis. He was taken to the operating room on the same day where he underwent a laparoscopic cholecystectomy with intraoperative cholangiogram with notable findings of gallbladder necrosis and cholelithiasis in addition to acute cholecystitis. Further noted per the operative report, the gallbladder was obstructed and decompressed with a needle. The cystic artery was controlled with 2 surgical clips proximally and one distally. Choliangiogram was normal. His postoperative course has been uncomplicated. He is ambulating avoiding without difficulty, tolerating a diet without nausea or vomiting, vital signs are stable, and he is afebrile. We will begin discharge planning to home with a follow-up in the office in approximately 2 weeks. - Time Spent with Patient Total time spent providing and/or coordinating discharge services: - Discharge Medications Prescriptions: New Amoxicillin/Clavulanate [Augmentin] 875 mg PO BIDWM 5 Days #10 tablet Docusate Sodium [Colace] 100 mg PO BID PRN #30 capsule PRN Reason: Contstipation Ibuprofen 800 mg PO Q8H PRN #30 tablet PRN Reason: Postsurgical pain Polyethylene Glycol 3350 [MiraLAX Powder Bulk 17.9 Oz] 1 scoop PO DAILY 30 Days #510 gm OxyCODONE/APAP 5/325 [Percocet 5/325 MG] 1 each PO Q6HR PRN 7 Days #28 tablet PRN Reason: Pain Ondansetron ODT [Zofran ODT] 4 mg SL Q4HR PRN #15 tab.rapdis PRN Reason: Postsurgical nausea Home Medications: Amoxicillin/Clavulanate [Augmentin] 875 mg PO BIDWM 5 Days #10 tablet 06/22/19 [Rx] Docusate Sodium [Colace] 100 mg PO BID PRN #30 capsule 06/22/19 [Rx] Ibuprofen 800 mg PO Q8H PRN #30 tablet 06/22/19 [Rx] Ondansetron ODT [Zofran ODT] 4 mg SL Q4HR PRN #15 tab.rapdis 06/22/19 [Rx] OxyCODONE/APAP 5/325 [Percocet 5/325 MG] 1 each PO Q6HR PRN 7 Days #28 tablet 06/22/19 [Rx] Polyethylene Glycol 3350 [MiraLAX Powder Bulk 17.9 Oz] 1 scoop PO DAILY 30 Days #510 gm 06/22/19 [Rx] Allergies/Adverse Reactions: Allergy/AdvReac Type Severity Reaction Status Date / Time No Known Allergies Allergy Verified 06/22/19 09:27 Date of admission: 06/21/19 10:02 Primary care physician: PCP NONE Consults: 06/21/19 06:58 Consult to Surgery [CONS] Stat Consulting Provider: [facility] Reason for Consult: cholecystitis Call Completed: Yes Discharging clinician: Mj Gurrola, EUNICE) Anticipated date of discharge: 06/22/19 Labs on day of discharge: Labs from last 24 hours 06/22/19 06/22/19 06/21/19 05:59 05:59 15:43 WBC 11.0 RBC 4.32 Hgb 12.8 L D Hct 38.3 MCV 88.7 MCH 29.6 MCHC 33.4 RDW 13.4 Plt Count 181 MPV 9.6 Immature Gran % 0.3 Seg Neutrophils % 78.0 Lymphocytes % 9.4 Monocytes % 12.0 Eosinophils % 0.0 Basophils % 0.3 Neutrophils # 8.6 Lymphocytes # 1.0 Monocytes # 1.3 Eosinophils # 0.0 Basophils # 0.0 Sodium 141 Potassium 4.2 Chloride 103 Carbon Dioxide 28 BUN 11 Creatinine 0.96 Est GFR ( Amer) > 60 Est GFR (Non-Af Amer) > 60 BUN/Creatinine Ratio 11 Glucose 144 H POC Glucose 110 H Calculated Osmolality 294 Calcium 9.1 - Impressions ITS Impressions Abdomen/Pelvis CT 06/21/19 05:36 IMPRESSION: Partially calcified gallstone in the gallbladder neck with gallbladder distension, mild hyperemia, and question trace pericholecystic fluid suspicious of acute cholecystitis. D/ / 06/21/2019 07:32:14 Cyril Goyal / dino Interpreting Provider: Cyril Goyal Gallbladder Ultrasound 06/21/19 06:33 IMPRESSION: Cholelithiasis with diffuse gallbladder mucosal thickening and slight prominence of the CBD. No pericholecystic fluid or sonographic Ramos sign. Findings are equivocal, and acute cholecystitis can not be definitively excluded. D/ / Chepe Cesar MD / Chepe Cesar MD Interpreting Provider: Chepe Cesar MD Cholangiogram,Operative 06/21/19 18:40 IMPRESSION: Intraoperative cholangiogram as above. See procedure note for further details. D/ / Jennie Hunter Cha, MD / Jennie Hunter Cha, MD Interpreting Provider: Jennie Hunter Cha, MD - Patient Status Disposition: Home, Self-Care Condition: Fair Functional capacity at discharge: independent ambulation Overall status at discharge: patient is progressing back to baseline - Discharge Instructions Instructions: Laparoscopic Cholecystectomy (DC) Follow Up With: NONE,PCP [Primary Care Provider] - Mj Hart MD [Partnered Physician] - 07/06/19 9:00 am Forms: ED Satisfaction Letter, Work/School Release Additional Instructions: General Surgical Discharge Instructions 1. No pushing, pulling, or lifting greater than 15 lbs for 2-4 weeks (depending upon procedure). 2. You may remove your dressings and shower beginning today, but no tub baths, soaking, or swimming for 2 weeks. 3. No driving for two weeks unless otherwise specified and then you may resume driving when you are off narcotics and are safe to react in a car. 4. Take ibuprofen every 8 hours for discomfort. If this does not relieve discomfort, you may take the as needed Percocet. Eat a small snack with pain medication as this will help reduce the risk of nausea. Take narcotics as directed. Do not take more narcotics then directed and do not share your narcotics with any other person. Do not drink alcohol while on narcotics. You can take the Zofran/ondansetron if needed for nausea or with a dose of narcotics to prevent nausea. 5. Take stool softeners (Colace) or a water based laxative (Miralax) while taking narcotics. You may hold for loose stools. 6. Report any fevers greater than 100.5F, increase abdominal discomfort, drainage that looks like pus, increased redness or pain at the surgical site, or any vomiting. 7. Report any pain in the calves, shortness of breath, or rapid heartbeat. 8. Follow-up in the office as directed. 9. If you were prescribed antibiotics, do not stop them without talking to your provider. - Diet and Activity Activity: increase activity as tolerated, return to work once cleared by your PCP/specialist Diet: advance to your usual diet <Mj Hart - Last Filed: 06/22/19 12:48> Orders not resulted at time of discharge: Pending orders 06/21/19 18:33 Surgical Pathology [PTH] Routine Date of Encounter: 06/22/19 - Discharge Diagnosis (1) Cholelithiasis and acute cholecystitis without obstruction Status: Acute General Surgery Exam Initial Vital Signs Temp Pulse Resp BP Pulse Ox 98.1 F 71 16 159/106 100 06/21/19 05:36 06/21/19 05:36 06/21/19 05:36 06/21/19 05:36 06/21/19 05:36 - Hospital Course Hospital course: Mr. Bryan is a 38 year old male - Time Spent with Patient Total time spent providing and/or coordinating discharge services: Date of admission: 06/21/19 10:02 Primary care physician: PCP NONE Consults: 06/21/19 06:58 Consult to Surgery [CONS] Stat Consulting Provider: [facility] Reason for Consult: cholecystitis Call Completed: Yes Labs on day of discharge: Labs from last 24 hours 06/22/19 06/22/19 06/21/19 05:59 05:59 15:43 WBC 11.0 RBC 4.32 Hgb 12.8 L D Hct 38.3 MCV 88.7 MCH 29.6 MCHC 33.4 RDW 13.4 Plt Count 181 MPV 9.6 Immature Gran % 0.3 Seg Neutrophils % 78.0 Lymphocytes % 9.4 Monocytes % 12.0 Eosinophils % 0.0 Basophils % 0.3 Neutrophils # 8.6 Lymphocytes # 1.0 Monocytes # 1.3 Eosinophils # 0.0 Basophils # 0.0 Sodium 141 Potassium 4.2 Chloride 103 Carbon Dioxide 28 BUN 11 Creatinine 0.96 Est GFR ( Amer) > 60 Est GFR (Non-Af Amer) > 60 BUN/Creatinine Ratio 11 Glucose 144 H POC Glucose 110 H Calculated Osmolality 294 Calcium 9.1 - Impressions ITS Impressions Abdomen/Pelvis CT 06/21/19 05:36 IMPRESSION: Partially calcified gallstone in the gallbladder neck with gallbladder distension, mild hyperemia, and question trace pericholecystic fluid suspicious of acute cholecystitis. D/ / 06/21/2019 07:32:14 Cyril Goyal / dino Interpreting Provider: Cyril Goyal Gallbladder Ultrasound 06/21/19 06:33 IMPRESSION: Cholelithiasis with diffuse gallbladder mucosal thickening and slight prominence of the CBD. No pericholecystic fluid or sonographic Ramos sign. Findings are equivocal, and acute cholecystitis can not be definitively excluded. D/ / Chepe Cesar MD / Chepe Cesar MD Interpreting Provider: Chepe Cesar MD Cholangiogram,Operative 06/21/19 18:40 IMPRESSION: Intraoperative cholangiogram as above. See procedure note for further details. D/ / Jennie Hunter Cha, MD / Jennie Hunter Cha, MD Interpreting Provider: Jennie Hunter Cha, MD - Attending Attestation I have personally performed a face to face evaluation on this patient. I have reviewed and agree with the care plan. History and Exam by me shows: The patient is seen and evaluated on morning rounds with the acute care surgery team. His pain is completely controlled. Reoperative pain syndrome is gone. I am very pleased with his overall clinical course. He is ready for discharge. Follow-up acute care surgery clinic in 1-2 weeks. Mj Hart MD FACS
== END 2019-06-22 10:35 | disposition home or self-care (01) ==
LOC: EMEROOARM 05:14 → 3ANU 05:14
PROVIDERS: ADMIT Surgery; ATTEND Surgery